=== PATIENT | female | born 1975 | race Two or more races ===

== ENCOUNTER 2018-02-11 04:57 | Emergency (ER) | payer OTHER ==
[~2018-02-11] VITALS: Ht 154.9 cm; Wt 72.6 kg
[2018-02-11] MEDS ORDERED: LOSARTAN-HCTZ1 EAC2 (05:18)
[2018-02-11] MEDS ORDERED: SYNTHROID200 MCG (05:18)
[2018-02-11] MEDS ORDERED: VITAMIN B COMP1 EAC1 (05:20)
[2018-02-11] MEDS ORDERED: PRENA1 TRUE CO1 EACH (05:21)
[2018-02-11] MEDS ORDERED: VITAMIN D1000 UNI1 (05:22)
== END 2018-02-11 14:26 | disposition home or self-care (01) ==
LOC: ER 04:57
DX: I88.0 Nonspecific mesenteric lymphadenitis (principal); R10.31 Right lower quadrant pain

== ENCOUNTER → 2022-02-01 | Outpatient (CLI) | payer OTHER ==
[~2022-02-01] MED LIST: LOSARTAN-HCTZ1 EAC2; PRENA1 TRUE CO1 EACH; SYNTHROID200 MCG; VITAMIN B COMP1 EAC1; VITAMIN D1000 UNI1
== END | disposition home or self-care (01) ==
LOC: RAD 09:34
PROVIDERS: ATTEND Obstetrics & Gynecology
DX: N93.9 Abnormal uterine and vaginal bleeding, unspecified (principal); N84.0 Polyp of corpus uteri; Z12.39 Encounter for other screening for malignant neoplasm of breast; R10.2 Pelvic and perineal pain
CPT/HCPCS: 72195